=== PATIENT | male | born 1970 | race Caucasian/White ===

== ENCOUNTER 2024-05-08 20:40 | Emergency (ER) | payer OTHER, SELFPAY ==
[2024-05-08 20:57] VITALS: BP 163/121; PULSE 85; RESP 16; TEMP 36.5; O2SAT 96; BMI 36.6
--- NOTE | 2024-05-08 21:46 | ED_ITS ---
HPI - Eye Problem General: Chief complaint: Eye Problems Stated complaint: something in right eye Time Seen by Provider: 05/08/24 21:45 History of Present Illness: Patient was working with a wood saw this morning and his partner used the compressed air to clean off the machine causing dirt and debris to fly out from it. Patient reports getting something in his right eye that has been irritating him all day. Patient believes he was able to get it out but continues to have discomfort to the eye. Patient appears nontoxic. Patient appears in moderate pain. Review of Systems General: Reports: 10 or more systems reviewed and unremarkable except in HPI and below Physical Exam Const: COMMON NORMALS: alert HENMT: COMMON NORMALS: normocephalic HEAD & SCALP: normocephalic Eye: CORNEA: Yes fluorescein used (1 mm defect noted to the 9 o'clock position at the edge of the iris.) Neck/C-Spine: COMMON NORMALS: full ROM Resp: COMMON NORMALS: normal respiratory effort Cardio: COMMON NORMALS: regular rate RATE: regular rate Back/Pelvis: COMMON NORMALS: thoracic and lumbar spine normal to inspection Extremity: COMMON NORMALS: normal to inspection Neuro: SENSORIUM/ORIENTATION: Yes alert Skin: COMMON NORMALS: turgor normal GENERAL SKIN EXAM: turgor normal Course Vital Signs: Vital signs: Vital Signs Temperature 97.7 F 05/08/24 20:57 Pulse Rate 85 05/08/24 20:57 Respiratory Rate 16 05/08/24 20:57 Blood Pressure 163/121 05/08/24 20:57 Pulse Oximetry 96 05/08/24 20:57 Oxygen Delivery Me thod Room Air 05/08/24 20:57 MDM - Eye Problem Medical Decision Making 54-year-old male patient comes in today for complaints of discomfort to the right eye. On exam patient has no foreign body noted in the eye but does have a small corneal abrasion to the right eye at about the edge of the iris at the 9 o'clock position. It is approximately 1 mm. This is noted with fluorescein stain. Differential diagnosis includes foreign body, corneal laceration, corneal abrasion. No signs of serious injury is noted. Reviewed exam with patient with recommendations for treatment for corneal abrasion. Patient reported understanding. No radiology studies performed this visit Discharge Plan Discharge Patient Disposition: Home Clinical Impression: Corneal abrasion Qualifiers: Encounter type: initial encounter Laterality: right Qualified Code(s): S05.01XA - Injury of conjunctiva and corneal abrasion without foreign body, right eye, initial encounter Condition: Stable Discharge Orders: Discharge ED (Routine); Ordered 05/08/24 Ordered By: Fred Alonso Discharge Diet: Usual diet Discharge Activity: Increase activity as tolerated Patient Instructions: Corneal Abrasion (ED) Activity Restrictions/Additional Instructions: You may use the pain eyedrops, tetracaine, 1 drop every hour as needed for the next 2 days as needed for discomfort. Do not use it longer than 48 hours. Use the antibiotic eyedrops 4 times a day while awake for the next 7 days. Follow- up with primary care in 2 to 3 days for recheck. If pain persists after 3 days you need to be seen by an eye resident care aid. Return to ED for new concerns. Coding Level of Care Code ED Physically Impaired Teacher for Renny Oliveira
[2024-05-08] MEDS: tetracaine 0.5% Op Soln 4 mL Btl 1 DROP EYE-RIGHT (21:52)
== END 2024-05-08 22:08 | disposition home or self-care (01) ==
PROVIDERS: Emergency Provider Nurse Practitioner Family
DX: S05.01XA Injury of conjunctiva and corneal abrasion without foreign body, right eye, initial encounter (principal); W44.F9XA Other object of natural or organic material, entering into or through a natural orifice, initial encounter
CPT/HCPCS: 99283

== ENCOUNTER 2024-05-16 04:59 | Emergency (ER) | payer OTHER, SELFPAY ==
[2024-05-16 05:03] VITALS: BP 150/107; PULSE 80; RESP 18; TEMP 36.6; O2SAT 96; BMI 34.9
--- NOTE | 2024-05-16 05:19 | ED_ITS ---
HPI - General Adult 2 General: Chief complaint: General Medical Stated complaint: leg cramping, abd pain Time Seen by Provider: 05/16/24 05:14 History of Present Illness: 54-year-old man who presents emergency r oom with muscle cramping and weakness. He also has some mild generalized abdominal pain. He says he was working at a [employer] and thinks he got dehydrated. He has been drinking fluids and taking potassium pills but this has not helped. No altered mental status. No nausea or vomiting. No chest pain. Review of Systems 2 Narrative: Constitutional symptoms: Negative except as documented in HPI. Skin symptoms: Negative except as documented in HPI. Eye symptoms: Negative except as documented in HPI. ENMT symptoms: Negative except as documented in HPI. Respiratory symptoms: Negative except as documented in HPI. Cardiovascular symptoms: Negative except as documented in HPI. Gastrointestinal symptoms: Negative except as documented in HPI. Genitourinary symptoms: Negative except as documented in HPI. Musculoskeletal symptoms: Negative except as documented in HPI. Neurologic symptoms: Negative except as documented in HPI. Psychiatric symptoms: Negative except as documented in HPI. Endocrine symptoms: Negative except as documented in HPI. Physical Exam 2 Narrative: EXAM NARRATIVE: General: Alert, no acute distress. Skin: Warm, dry. Head: Normocephalic, atraumatic. Neck: Supple, trachea midline. Eye: Extraocular movements are intact. Ears, nose, mouth and throat: Tacky oral mucosa Cardiovascular: Regular, Normal peripheral perfusion. Respiratory: Lungs are clear to auscultation, respirations are non-labored, breath sounds are equal, Symmetrical chest wall expansion. Gastrointestinal: Soft, Nontender, Non distended, Normal bowel sounds. Musculoskeletal: Normal ROM, no deformity. Neurological: Alert and oriented, No focal neurological deficit observed. Psychiatric: Cooperative, appropriate mood & affect. Course 2 Vital Signs: Vital signs: Vital Signs Temperature 97.8 F 05/16/24 05:03 Pulse Rate 67 05/16/24 05:36 Respiratory Rate 18 05/16/24 05:03 Blood Pressure 129/87 05/16/24 05:36 Pulse Oximetry 99 05/16/24 05:36 Oxygen Delivery Me thod Room Air 05/16/24 05:36 [facility] - General Adult Medical Decision Making Lab results. BUN is fairly elevated at 26. Creatinine is normal at 1. This urine is a bit concentrated at 1.020 which would indicate dehydration. Assessment and plan: Dehydration -1.5 L normal saline given in the emergency room. - Discharged home - Discussed plan with patient. Answered any questions. - Evaluation and treatment of this problem were appropriate in the emergency setting. Lab Data 05/16/24 05:15 05/16/24 05:15 Laboratory Results WBC 6.52 10^3/uL (3.29-11.43) 05/16/24 05:15 RBC 4.24 10^6/uL (3.85-5.65) 05/16/24 05:15 Hgb 14.30 g/dL (11.27-16.99) 05/16/24 05:15 Hct 42.3 % (37-53) 05/16/24 05:15 MCV 99.8 fl (82-101) 05/16/24 05:15 MCH 33.7 pg (27-33) H 05/16/24 05:15 MCHC 33.8 g/dL (30-55) 05/16/24 05:15 RDW 13.3 % (12.1-15.1) 05/16/24 05:15 Plt Count 208 10^3/cmm (157-399) 05/16/24 05:15 MPV 10.3 fL (7.4-10.4) 05/16/24 05:15 Neut % (Auto) 53.9 % 05/16/24 05:15 Lymph % (Auto) 29.0 % 05/16/24 05:15 [place] % (Auto) 13.7 % 05/16/24 05:15 Eos % (Auto) 2.6 % 05/16/24 05:15 Baso % (Auto) 0.5 % 05/16/24 05:15 Neut # (Auto) 3.52 10^3/uL (1.8-7.7) 05/16/24 05:15 Lymph # (Auto) 1.9 10^3/uL (0.8-4.8) 05/16/24 05:15 [place] # (Auto) 0.9 10^3/uL (0.2-0.9) 05/16/24 05:15 Eos # (Auto) 0.2 10^3/uL (0.0-0.8) 05/16/24 05:15 Baso # (Auto) 0.0 10^3/uL (0.0-0.1) 05/16/24 05:15 Nucleated RBC % (auto) 0 % 05/16/24 05:15 Nucleated RBCs # 0.0 /100WBC 05/16/24 05:15 Sodium 137 mmol/L (136-145) 05/16/24 05:15 Potassium 3.9 mmol/L (3.5-5.1) 05/16/24 05:15 Chloride 100 mmol/L (98-107) 05/16/24 05:15 Carbon Dioxide 23 mmol/L (22-29) 05/16/24 05:15 Anion Gap 17.9 (5-19) 05/16/24 05:15 BUN 26 mg/dL (6-20) H 05/16/24 05:15 Creatinine 1.0 mg/dL (0.7-1.2) 05/16/24 05:15 GFR Calculation 77.9 mL/min (90-130) L 05/16/24 05:15 Glucose 148 mg/dL (65-115) H 05/16/24 05:15 Calculated Osmolality 292 mOsm/kg (285-295) 05/16/24 05:15 Calcium 9.2 mg/dL (8.5-10.5) 05/16/24 05:15 Magnesium 2.1 mg/dL (1.7-2.3) 05/16/24 05:15 Total Bilirubin 1.1 mg/dL (0.15-1.2) 05/16/24 05:15 AST 22 U/L (0-40) 05/16/24 05:15 ALT 26 U/L (0-41) 05/16/24 05:15 Alkaline Phosphatase 68 U/L (40-130) 05/16/24 05:15 Total Protein 7.4 g/dL (6.6-8.7) 05/16/24 05:15 Albumin 4.3 g/dL (3.5-5.2) 05/16/24 05:15 Globulin 3.1 g/dL (1.3-4.6) 05/16/24 05:15 Urine Color Yellow (Yellow) 05/16/24 05:18 Urine Appearance Clear (CLEAR) 05/16/24 05:18 Urine pH 5 (5-7) 05/16/24 05:18 Ur Specific [place] 1.020 (1.005-1.030) 05/16/24 05:18 Urine Protein Neg (Negative) 05/16/24 05:18 Urine Glucose (UA) Norm (Normal) 05/16/24 05:18 Urine Ketones Negative (Negative) 05/16/24 05:18 Urine Blood Neg (Negative) 05/16/24 05:18 Urine Nitrate Negative (Negative) 05/16/24 05:18 Urine Bilirubin Neg (Negative) 05/16/24 05:18 Urine Urobilinogen Neg mg/dL (Negative) 05/16/24 05:18 Ur Leukocyte Esterase Negative (Negative) 05/16/24 05:18 Urine RBC 0-4 /hpf (0-2) H 05/16/24 05:18 Urine WBC 0-4 /hpf (0-5) H 05/16/24 05:18 Ur Squamous Epith Cells None /hpf (0-5) 05/16/24 05:18 Amorphous Sediment Not Reportable 05/16/24 05:18 Urine Bacteria None /hpf (NONE) 05/16/24 05:18 Urine Mucus 1+ /hpf 05/16/24 05:18 Urine Sperm 1+ /hpf 05/16/24 05:18 No radiology studies performed this visit Discharge Plan Discharge Patient Disposition: Home Clinical Impression: Acute dehydration Condition: Stable Discharge Orders: Discharge ED (Routine); Ordered 05/16/24 Ordered By: Fanny Caruso Discharge Diet: Usual diet Discharge Activity: Resume usual activity Patient Instructions: Dehydration (ED) Activity Restrictions/Additional Instructions: Thank you for choosing [facility] for your healthcare needs today. Please realize this is an emergency room and that we are providing you with a medical screening exam and this may not be complete and all inclusive of all the testing and or work up that you may need to determine your ailment or severity of your illness. You have been screened and evaluated and felt safe for discharge. Health conditions do change or evolve sometimes and as such it is important that you follow up with your Primary Doctor to be re checked, 3-5 days is a general good time frame for follow up. You are always welcome to return to the ED for re assessment if your symptoms are worsening or you have new concerns Coding Level of Care Code ED Java Groovy Developer for Renny Oliveira
[2024-05-16] MEDS: sodium chloride 0.9% 1,000 ML 999 ML IV (05:21)
[2024-05-16 05:24] LABS: Basophils % 0.5 %; Eosinophils # 0.2 10^3/uL (0.0-0.8); Eosinophils % 2.6 %; Hematocrit 42.3 % (37-53); Lymphocytes # 1.9 10^3/uL (0.8-4.8); Mean Corpuscular HGB Conc 33.8 g/dL (30-55); Mean Corpuscular Hemoglobin 33.7 pg (27-33); Mean Corpuscular Volume 99.8 fl (82-101); Mean Platelet Volume 10.3 fL (7.4-10.4); Monocytes # 0.9 10^3/uL (0.2-0.9); Monocytes % 13.7 %; Neutrophils # 3.52 10^3/uL (1.8-7.7); Neutrophils % 53.9 %; Nucleated Red Blood Cells % 0 %; Platelet Count 208 10^3/cmm (157-399); Red Blood Count 4.24 10^6/uL (3.85-5.65); Red Cell Distribution Width 13.3 % (12.1-15.1); White Blood Count 6.52 10^3/uL (3.29-11.43)
[2024-05-16 05:26] VITALS: BP 156/83; PULSE 70; O2SAT 98
[2024-05-16 05:33] LABS: Bilirubin Urine Neg (Negative); Blood Urine Neg (Negative); Glucose Urine UA Norm (Normal); Ketones Urine Negative (Negative); Leukocyte Esterase Urine Negative (Negative); Nitrate Urine Negative (Negative); Protein Urine Neg (Negative); Urine Appearance Clear (CLEAR); Urine Color Yellow (Yellow); Urobilinogen Urine Neg (Negative); pH Urine 5 (5-7)
[2024-05-16 05:34] LABS: Add Urine Culture? No; Mucus Urine 1+ /hpf; RBC Urine 0-4 /hpf (0-2); Sperm Urine 1+ /hpf; WBC Urine 0-4 /hpf (0-5)
[2024-05-16 05:36] VITALS: BP 129/87; PULSE 67; O2SAT 99
[2024-05-16 05:38] LABS: Alanine Aminotransferase 26 U/L (0-41); Albumin Level 4.3 g/dL (3.5-5.2); Alkaline Phosphatase 68 U/L (40-130); Anion Gap 17.9 (5-19); Aspartate Amino Transferase 22 U/L (0-40); Blood Urea Nitrogen 26 mg/dL (6-20); Calcium 9.2 mg/dL (8.5-10.5); Carbon Dioxide 23 mmol/L (22-29); Chloride 100 mmol/L (98-107); Creatinine Clr Calc Pharmacy 89.5852; Globulin 3.1 g/dL (1.3-4.6); Glomerular Filtration Rate 77.9 mL/min (90-130); Glucose 148 mg/dL (65-115); Magnesium 2.1 mg/dL (1.7-2.3); Osmolality Calculated 292 mOsm/kg (285-295); Potassium 3.9 mmol/L (3.5-5.1); Sodium 137 mmol/L (136-145); Total Bilirubin 1.1 mg/dL (0.15-1.2); Total Protein 7.4 g/dL (6.6-8.7)
[2024-05-16] MEDS: sodium chloride 0.9% 500 ML 999 ML IV (05:48)
[2024-05-16 06:02] VITALS: BP 119/88; PULSE 65; RESP 18; O2SAT 99
== END 2024-05-16 06:39 | disposition home or self-care (01) ==
PROVIDERS: Emergency Provider Emergency Medicine
DX: E86.0 Dehydration (principal)
CPT/HCPCS: 80053; 81001; 83735; 85025; 96374; 96375; 99284; J7030; J7040

== ENCOUNTER 2024-08-31 10:07 | Emergency (ER) | payer OTHER, SELFPAY ==
[2024-08-31 10:30] VITALS: BP 167/84; PULSE 66; RESP 18; TEMP 36.8; O2SAT 99
[2024-08-31 10:49] LABS: Basophils % 0.4 %; Eosinophils # 0.1 10^3/uL (0.0-0.8); Eosinophils % 1.8 %; Hematocrit 40.8 % (37-53); Lymphocytes # 1.1 10^3/uL (0.8-4.8); Lymphocytes % 21.3 %; Mean Corpuscular HGB Conc 35.5 g/dL (30-55); Mean Corpuscular Volume 95.6 fl (82-101); Mean Platelet Volume 9.5 fL (7.4-10.4); Monocytes # 0.4 10^3/uL (0.2-0.9); Monocytes % 8.2 %; Neutrophils # 3.48 10^3/uL (1.8-7.7); Neutrophils % 68.1 %; Nucleated Red Blood Cells % 0 %; Platelet Count 213 10^3/cmm (157-399); Red Blood Count 4.27 10^6/uL (3.85-5.65); Red Cell Distribution Width 13.2 % (12.1-15.1); White Blood Count 5.11 10^3/uL (3.29-11.43)
[2024-08-31 11:12] LABS: Albumin Level 3.9 g/dL (3.5-5.2); Alkaline Phosphatase 105 U/L (40-130); Anion Gap 11.9 (5-19); Aspartate Amino Transferase 24 U/L (0-40); Blood Urea Nitrogen 10 mg/dL (6-20); Calcium 8.6 mg/dL (8.5-10.5); Carbon Dioxide 27 mmol/L (22-29); Chloride 101 mmol/L (98-107); Creatinine Clr Calc Pharmacy 109.9211; Globulin 2.7 g/dL (1.3-4.6); Glomerular Filtration Rate 100.7 mL/min (90-130); Glucose 145 mg/dL (65-115); Magnesium 1.8 mg/dL (1.7-2.3); Osmolality Calculated 284 mOsm/kg (285-295); Potassium 3.9 mmol/L (3.5-5.1); Sodium 136 mmol/L (136-145); Total Bilirubin 1.2 mg/dL (0.15-1.2); Total Protein 6.6 g/dL (6.6-8.7)
--- NOTE | 2024-08-31 11:18 | W.ED.WEAKNES ---
HPI - Weakness General: Chief complaint: Weakness Stated complaint: dehydrated, cant eat, cramping Time Seen by Provider: 08/31/24 10:48 History of Present Illness: 54-year-old male presents to the emergency room complaining of nausea abdominal cramping. Just generally feeling unwell. He states he has had this for the last several days he works at a job where it is quite hot he thinks he may have gotten a little bit dehydrated. Additionally he has previously been on Klonopin and had it stopped 8 days ago. Associated symptoms: Denies chest pain, chills, dysuria or fever(s) Review of Systems Const: Denies: fever(s) or chills Card: Denies: chest pain Resp: Denies: dyspnea GI: Denies: abdominal pain : Denies: dysuria, urinary frequency or urinary urgency Musc: Denies: neck pain or back pain Skin/Breast: Denies: rash PFSH ED PFSH: Medical History Psychiatric care Physical Exam Const: COMMON NORMALS: no acute distress GENERAL APPEARANCE: cooperative and comfortable ORIENTATION/CONSCIOUSNESS: Yes awake, Yes oriented to person, Yes oriented to place and Yes oriented to time HENMT: COMMON NORMALS: normocephalic, atraumatic and hearing grossly normal bilaterally HEAD & SCALP: normocephalic and atraumatic Resp: COMMON NORMALS: normal respiratory effort, No retractions, No use of accessory muscles and clear to auscultation bilaterally AUSCULTATION: clear to auscultation bilaterally Cardio: COMMON NORMALS: regular rate, regular rhythm and No murmurs present (Cardio) RATE: regular rate RHYTHM: regular rhythm GI: COMMON NORMALS: Soft to palpation and No hepatosplenomegaly present AUSCULTATION: Yes normoactive bowel sounds PALPATION: Yes Soft to palpation, No Tenderness to palpation present (GI), No Guarding due to palpation present (GI) and Yes No hepatosplenomegaly present Extremity: COMMON NORMALS: normal to inspection, capillary refill normal, no clubbing, cyanosis or edema, no calf tenderness and no pedal edema Neuro: SENSORIUM/ORIENTATION: Yes oriented to person, Yes oriented to place and Yes oriented to time Skin: COMMON NORMALS: no rashes or lesions noted GENERAL SKIN EXAM: no rashes or lesions noted Course Vital Signs: Vital signs: Vital Signs Temperature 98.2 F 08/31/24 10:30 Pulse Rate 70 08/31/24 14:14 Respiratory Rate 16 08/31/24 13:24 Blood Pressure 142/100 08/31/24 14:14 Pulse Oximetry 97 08/31/24 14:14 Oxygen Delivery Me thod Room Air 08/31/24 13:24 MDM - Weakness Medical Decision Making Improved after IV fluids. He generally has gastritis type symptoms. Labs and reviewed CBC and chemistry not show any significant abnormality has not had any urinary symptoms. Improved with fluids and antiemetics. Discharge patient home clear liquid diet advance as tolerated Zofran as needed Medical Records I reviewed the patient's medical records. Lab Data I reviewed the patient's lab results. 08/31/24 10:43 08/31/24 10:43 Laboratory Results WBC 5.11 10^3/uL (3.29-11.43) 08/31/24 10:43 RBC 4.27 10^6/uL (3.85-5.65) 08/31/24 10:43 Hgb 14.50 g/dL (11.27-16.99) 08/31/24 10:43 Hct 40.8 % (37-53) 08/31/24 10:43 MCV 95.6 fl (82-101) 08/31/24 10:43 MCH 34.0 pg (27-33) H 08/31/24 10:43 MCHC 35.5 g/dL (30-55) 08/31/24 10:43 RDW 13.2 % (12.1-15.1) 08/31/24 10:43 Plt Count 213 10^3/cmm (157-399) 08/31/24 10:43 MPV 9.5 fL (7.4-10.4) 08/31/24 10:43 Neut % (Auto) 68.1 % 08/31/24 10:43 Lymph % (Auto) 21.3 % 08/31/24 10:43 [place] % (Auto) 8.2 % 08/31/24 10:43 Eos % (Auto) 1.8 % 08/31/24 10:43 Baso % (Auto) 0.4 % 08/31/24 10:43 Neut # (Auto) 3.48 10^3/uL (1.8-7.7) 08/31/24 10:43 Lymph # (Auto) 1.1 10^3/uL (0.8-4.8) 08/31/24 10:43 [place] # (Auto) 0.4 10^3/uL (0.2-0.9) 08/31/24 10:43 Eos # (Auto) 0.1 10^3/uL (0.0-0.8) 08/31/24 10:43 Baso # (Auto) 0.0 10^3/uL (0.0-0.1) 08/31/24 10:43 Nucleated RBC % (auto) 0 % 08/31/24 10:43 Nucleated RBCs # 0.0 /100WBC 08/31/24 10:43 Sodium 136 mmol/L (136-145) 08/31/24 10:43 Potassium 3.9 mmol/L (3.5-5.1) 08/31/24 10:43 Chloride 101 mmol/L (98-107) 08/31/24 10:43 Carbon Dioxide 27 mmol/L (22-29) 08/31/24 10:43 Anion Gap 11.9 (5-19) 08/31/24 10:43 BUN 10 mg/dL (6-20) 08/31/24 10:43 Creatinine 0.8 mg/dL (0.7-1.2) 08/31/24 10:43 GFR Calculation 100.7 mL/min (90-130) 08/31/24 10:43 Glucose 145 mg/dL (65-115) H 08/31/24 10:43 Calculated Osmolality 284 mOsm/kg (285-295) L 08/31/24 10:43 Calcium 8.6 mg/dL (8.5-10.5) 08/31/24 10:43 Magnesium 1.8 mg/dL (1.7-2.3) 08/31/24 10:43 Total Bilirubin 1.2 mg/dL (0.15-1.2) 08/31/24 10:43 AST 24 U/L (0-40) 08/31/24 10:43 ALT 23 U/L (0-41) 08/31/24 10:43 Alkaline Phosphatase 105 U/L (40-130) 08/31/24 10:43 Total Protein 6.6 g/dL (6.6-8.7) 08/31/24 10:43 Albumin 3.9 g/dL (3.5-5.2) 08/31/24 10:43 Globulin 2.7 g/dL (1.3-4.6) 08/31/24 10:43 All radiology interpretation(s) finalized by discharge Discharge Plan Discharge Patient Disposition: Home Clinical Impression: Gastroenteritis Condition: Stable Prescriptions: New ondansetron HCl 4 mg tablet 4 mg PO Q6H PRN (Reason: nausea and vomiting) Qty: 20 0RF No Action nebivolol [Bystolic] 2.5 mg tablet 2.5 mg PO DAILY clonazepam 1 mg tablet 1 mg PO BID prazosin 5 mg capsule 5 mg PO .HS Qty: 30 1RF amitriptyline 25 mg tablet 25 mg PO .HS Qty: 30 1RF Discharge Orders: Discharge ED (Routine); Ordered 08/31/24 Ordered By: Tanner Rivera Discharge Diet: Clear Liquid Discharge Activity: Increase activity as tolerated Patient Instructions: Opioid Safety, Pain Management Activity Restrictions/Additional Instructions: Thank you for choosing [facility] for your healthcare needs today. It is very important that you follow up as instructed or that you return to the Emergency Department should you have concerns or if your condition changes or worsens in any way. You are seen in the emergency room for generally not feeling well as well as having some nausea and diarrhea. Laboratory test did not show significant abnormality. He reported feeling somewhat improved after receiving IV fluids. Suspect he may have some mild gastroenteritis. Recommend clear liquid diet for next 24 to 48 hours and advance as tolerated you can use ondansetron as needed. Stand Alone Forms: Work/School Release Coding Level of Care Code ED Real Estate Transaction Coordinator for [employer] Home Medications Medication Instructions Recorded Confirmed clonazepam 1 mg tablet 1 mg PO BID 08/23/24 nebivolol 2.5 mg tablet (Bystolic) 2.5 mg PO DAILY 08/23/24 Previous Rx's Medication Instructions Recorded amitriptyline 25 mg tablet 25 mg PO .HS #30 tabs 08/23/24 prazosin 5 mg capsule 5 mg PO .HS #30 caps 08/23/24 ondansetron HCl 4 mg tablet 4 mg PO Q6H PRN nausea and 08/31/24 vomiting #20 tabs Allergies Allergy/AdvReac Type Severity Reaction Status Date / Time No Known Allergies Allergy Verified 05/16/24 05:07
[2024-08-31] MEDS: lactated ringers 1,000 ML 999 ML IV (11:20)
[2024-08-31] MEDS: ondansetron 2 mg/ML SDV 2 mL 4 MG IVP (11:20)
[2024-08-31 11:24] LABS: Alanine Aminotransferase 23 U/L (0-41)
[2024-08-31 13:24] VITALS: BP 144/97; PULSE 52; RESP 16; O2SAT 95
[2024-08-31 14:14] VITALS: BP 142/100; PULSE 70; O2SAT 97
== END 2024-08-31 14:15 | disposition home or self-care (01) ==
PROVIDERS: Emergency Medicine; Emergency Provider Family Medicine
DX: K52.9 Noninfective gastroenteritis and colitis, unspecified (principal)
CPT/HCPCS: 36415; 80053; 83735; 85025; 96374; 99284; J2405; J7120

== ENCOUNTER → 2025-01-20 17:33 | Outpatient (BNVA) | payer OTHER, SELFPAY | DX: M25.512 Pain in left shoulder (principal) | CPT/HCPCS: 73030 ==

== ENCOUNTER → 2025-02-03 08:27 | Outpatient (BNVA) | payer OTHER, SELFPAY | PROVIDERS: Visit Provider Nurse Practitioner | DX: M19.012 Primary osteoarthritis, left shoulder (principal); R29.898 Other symptoms and signs involving the musculoskeletal system; S49.92XA Unspecified injury of left shoulder and upper arm, initial encounter; X58.XXXA Exposure to other specified factors, initial encounter | CPT/HCPCS: 73030 ==

== ENCOUNTER 2025-02-17 10:44 | Outpatient (CLI) | payer OTHER, MEDICAID, SELFPAY ==
--- NOTE | 2025-02-17 11:00 | MR_ITS ---
WS: [id number] MRI LEFT SHOULDER HISTORY: left shoulder injury COMPARISON: Radiograph 02/03/2025 TECHNIQUE: Multiplanar sequences of the shoulder joint are submitted. Mild AC joint arthropathy. Hypertrophic osteophytes from the clavicle and acromion. Very small amount of fluid in the subacromial bursa. Mild subacromial impingement. No os acromion. Biceps tendon in normal position at the bicipital groove. Very slightly high riding humeral head. Mild asymmetry of the glenohumeral joint. Tendinopathy in the distal supraspinatus tendon. There is an additional moderate insertion site tear measuring 5.3 mm involving the articular surface of the supraspinatus. No full-thickness tear or retraction. No significant atrophy of the rotator cuff muscles. Subscapularis recess fluid. Superior anterior labral tear. There is an additional posterior labral tear with involvement of the glenoid. No displacement. Inferior labrum appears intact. Coracohumeral ligament edema. MR/MR shoulder LT con* [id number] IMPRESSION: 1. Large superior to anterior labral tear. 2. Additional posterior labral tear with avulsion of the glenoid. 3. Moderate insertion site tear of the supraspinatus tendon without retraction . 4. Mild AC joint arthritis. 5. Mild subacromial impingement. 6. No rotator cuff muscle atrophy. 7. Coracohumeral ligament edema.
== END 2025-02-17 10:45 | disposition home or self-care (01) ==
PROVIDERS: Visit Provider Nurse Practitioner
DX: M19.012 Primary osteoarthritis, left shoulder (principal); S43.492A Other sprain of left shoulder joint, initial encounter; S46.012A Strain of muscle(s) and tendon(s) of the rotator cuff of left shoulder, initial encounter; X58.XXXA Exposure to other specified factors, initial encounter
CPT/HCPCS: 73221

== ENCOUNTER 2025-03-03 11:18 | Outpatient (CLI) | payer OTHER, MEDICAID, SELFPAY ==
[2025-03-03 12:57] LABS: Add Urine Microscopic? NO
[2025-03-03 13:06] LABS: Basophils % 0.4 %; Eosinophils # 0.1 10^3/uL (0.0-0.8); Eosinophils % 2.4 %; Hematocrit 37.2 % (37-53); Lymphocytes % 36.9 %; Mean Corpuscular HGB Conc 33.6 g/dL (30-55); Mean Corpuscular Hemoglobin 32.9 pg (27-33); Mean Corpuscular Volume 97.9 fl (82-101); Mean Platelet Volume 10.6 fL (7.4-10.4); Monocytes # 0.6 10^3/uL (0.2-0.9); Monocytes % 10.3 %; Neutrophils # 2.71 10^3/uL (1.8-7.7); Neutrophils % 49.6 %; Nucleated Red Blood Cells % 0 %; Platelet Count 172 10^3/cmm (157-399); Red Cell Distribution Width 12.6 % (12.1-15.1); White Blood Count 5.45 10^3/uL (3.29-11.43)
[2025-03-03 13:22] LABS: Urine Appearance Clear (CLEAR); Urine Color Yellow (Yellow); pH Urine 6.5 (5-7)
[2025-03-03 13:23] LABS: Bilirubin Urine Neg (Negative); Blood Urine Neg (Negative); Glucose Urine UA Norm (Normal); Ketones Urine Negative (Negative); Leukocyte Esterase Urine Negative (Negative); Nitrate Urine Negative (Negative); Protein Urine Neg (Negative); Specific Gravity, Urine 1.015 (1.005-1.030); Urobilinogen Urine Neg (Negative)
[2025-03-03 13:24] LABS: Charge for UA Resulting for Rev
[2025-03-03 13:25] LABS: Alanine Aminotransferase 26 U/L (0-41); Albumin Level 4.1 g/dL (3.5-5.2); Alkaline Phosphatase 50 U/L (40-130); Anion Gap 11.1 (5-19); Aspartate Amino Transferase 18 U/L (0-40); Blood Urea Nitrogen 15 mg/dL (6-20); Calcium 8.9 mg/dL (8.5-10.5); Carbon Dioxide 31 mmol/L (22-29); Chloride 104 mmol/L (98-107); Globulin 2.4 g/dL (1.3-4.6); Glomerular Filtration Rate 100.4 mL/min (90-130); Glucose 102 mg/dL (65-115); Osmolality Calculated 295 mOsm/kg (285-295); Potassium 4.1 mmol/L (3.5-5.1); Sodium 142 mmol/L (136-145); Total Bilirubin 0.6 mg/dL (0.15-1.2); Total Protein 6.5 g/dL (6.6-8.7)
== END 2025-03-03 11:19 | disposition home or self-care (01) ==
LOC: LAB 11:19
PROVIDERS: Visit Provider Orthopaedic Surgery
DX: Z01.818 Encounter for other preprocedural examination (principal)
CPT/HCPCS: 36415; 80053; 81003; 85025

== ENCOUNTER 2025-03-12 09:22 | Day surgery (SDC) | payer OTHER, MEDICAID, SELFPAY ==
[2025-03-12] VITALS (13 sets, daily range): BP systolic 118–139; BP diastolic 75–107; PULSE 60–91; RESP 10–25; TEMP 36.1–36.6; O2SAT 90–98; BMI 36.8
[2025-03-12] MEDS: sodium chloride 0.9% 1,000 ML 30 ML IV (09:48)
--- NOTE | 2025-03-12 10:26 | P.ANESASSM_ITS ---
Pre-Anesthetic Assessment Height/Weight: Height 1.65 m Weight 100.244 kg Temp Pulse Resp BP Pulse Ox O2 Del Method 97.6 F 91 18 134/89 98 Room Air 03/12/25 09:42 03/12/25 09:42 03/12/25 09:42 03/12/25 09:42 03/12/25 09:42 03/12/25 09:42 Operation Date: 03/12/25 11:00 Proposed Procedures p LEFT SHOULDER DIAGNOSTIC AND SURGICAL ARTHROSCOPY(Left) - Delfino Malhotra MD s Rotator Cuff Repair(Left) - Delfino Malhotra MD s Labral Debridement(Left) - Delfino Malhotra MD Familial anesthetic complications: none Was Beta Ab taken within 24 hours: N/A Was Clonidine taken within 24 hours: N/A Last intake: Intake Last Liquid Date 03/11/25 Last Liquid Time 23:00 Last Solid Date 03/11/25 Last Solid Time 23:00 Social Tobacco and No alcohol Exam alert, oriented x 3 and regular rate & rhythm Airway Submandibular: within normal limits Cervical ROM: within normal limits Mallampati: Class II Dentition: chipped Pulmonary Chronic Obstructive Pulmonary Disease Neuropsych Anxiety Anesthetic Plan ASA status: 2 Anesthesia: General and Regional (specify below) (left interscalene) Medications/Allergies Home Medications ?Medication ?Instructions ?Recorded ?Confirmed ?Last Taken ?Type arm sling #1 ea 01/20/25 03/05/25 Unkn own Rx hydrocodone 5 mg-acetaminophen 325 1 tab PO BID PRN pa in 5 days #10 03/10/25 03/12/25 03/12/25 Rx mg tablet tabs Allergies Allergy/AdvReac Type Severity Reaction Status Date / Time No Known Allergies Allergy Verified 03/12/25 09:41 Current Medications Generic Name Dose Route Start Last Admin Trade Name Freq PRN Reason Stop Dose Admin Sodium Chloride 1,000 mls @ 30 mls/hr 03/12/25 09:45 03/12/25 09:48 Sodium Chloride 0.9% IV 03/13/25 09:44 30 mls/hr .Q24H KATHARINE Administration PFSH Anesthesia Medical History Labral tear of shoulder Rotator cuff tear Primary osteoarthritis, left shoulder Psychiatric care Social History Smoking and tobacco/nicotine status: never used tobacco/nicotine Data Anesthesia Cardiac Studies: No Data to Display
[2025-03-12] MEDS: HYDROmorphone 0.5 MG/0.5 ML INJ IVP (10:39)
--- NOTE | 2025-03-12 11:24 | P.HPUD_ITS ---
Surgery/Procedure H&P Update DATE OF PROCEDURE: March 12, 2025 DATE H&P PERFORMED: 03/05/25 H&P UPDATE INFORMATION: I have reviewed H&P completed within last 30 days, I have examined patient prior to procedure, No changes to prior documentation, H&P to be scanned into chart, H&P is in [facility] EMR on date indicated and Risks and benefits of the procedure reviewed PREOP DIAGNOSIS: Internal derangement left shoulder, torn labrum, torn rotator cuff PLANNED PROCEDURE: Operation Date: 03/12/25 11:00 Proposed Procedures p LEFT SHOULDER DIAGNOSTIC AND SURGICAL ARTHROSCOPY(Left) - Delfino Malhotra MD s Rotator Cuff Repair(Left) - Delfino Malhotra MD s Labral Debridement(Left) - Delfino Malhotra MD
--- NOTE | 2025-03-12 12:00 | ANES.PROC ---
Anesthesia Procedures Procedure/Date: 03/12/25 Nerve Block ^: Nerve Block 1: Main Anesthesia: general anesthesia Time Out Performed: Yes Consent: requested by attending/covering physician and patient agrees to proceed Nerve block location: interscalene (left) Anesthesia monitors applied: pulse oximetry, EKG, BP cuff and oxygen Nerve block position: semi sitting Anesthetic Used: ropivicaine 0.5% Amount of anesthesia used (mL): 30 Ultrasound used to: recognize landmarks and visualize and ID brachial plexus Nerve Stimulator Used?: No Interscalene/Femoral BLK: 2 stimuplex 22 g needle used for position and inplane approach Injection: neg aspiration of heme Patient Tolerated Procedure: well Complications: none
[2025-03-12] MEDS: ceFAZolin 2,000 mg SDV 2000 MG IVP (12:11)
--- NOTE | 2025-03-12 14:08 | PM.OP ---
Operative Report Date of procedure: March 12, 2025 Surgeon: Delfino Malhotra MD Procedure: Preoperative diagnosis: Internal derangement left shoulder Postop diagnosis: Degenerative tearing of the anterior and posterior labrum, torn rotator cuff of the supraspinatus tendon, acromial impingement Procedure: Diagnostic left shoulder arthroscopy with debridement of anterior and posterior labrum, debridement of rotator cuff tear. Mini open rotator cuff repair and acromioplasty Surgeon: Delfino Malhotra MD Brush Trimming Machine Setter: LOPEZ Gruber was necessary for positioning the patient, preparation of the patient, assistance during the procedure, send dressings. Anesthesia: General With preoperative scalene block EBL: 10 cc Complications: None Indications Alberto is a 55-year-old white male was referred in the orthopedic clinics for evaluation of left shoulder pain and problems. Thought he injured his shoulder throwing trash into a bin where the trash weighed all the way up to his 100 pounds etc. He noticed that he was having shoulder pain after this activity. Eventually an MRI was obtained and demonstrating anterior and posterior labral tearing as well as possible rotator cuff tear of the supraspinatus tendon. After orthopedic evaluation review of the MRI is felt the patient would most benefit from diagnostic left arthroscopy with all indicated procedures. All risk benefits treatment alternatives were discussed with him as well as all aspects of the surgery. All of his questions were answered and he was willing to proceed with surgical intervention. Procedure: After obtaining consent patient had skin block administered in preop holding area. Patient was then taken to the operating room placed on the operative table supine position general anesthetic administered. Once good anesthesia was achieved patient was placed up in the beachchair position and passed into the bed as well as padded out appropriately. Left upper extremity and shoulder were prepped and draped usual fashion. After surgical timeout standard posterior portals name and #11 blade and camera cannulas placed within the glenohumeral joint line. Working portal was also placed just inferior to the clavicle anteriorly. Probing the area found that there is fraying and tearing of the majority of the anterior labrum though no true through tear away from the glenoid. This is debrided on a stable cartilaginous base. There is some fraying of the superior labrum this too was debrided mechanical shaver. And there was degenerative tearing of the posterior horn of the labrum. This too was debrided mechanical shaver down to stable cartilaginous space. Evaluating the rotator cuff there appeared to be tearing of the inner surface of the rotator cuff from the biceps hiatus laterally. This debrided down with mechanical shaver. At this point arthroscopy was discontinued. A small mini open incision was made over the anterior aspect of the acromion. Sharp dissect taken on down to subcutaneous tissue electrocautery using stasis. Electrocautery was then used to peel the deltoid off the anterior aspect the acromion. It was quite notable by palpation that there is impingement of the acromion on the rotator cuff. This was then removed with a small microsagittal saw and debrided with a rongeur. Once adequate debridement been achieved and decompression was noted that there was a tear in the central portion of the insertion of the supraspinatus into the humerus. This is freshened with a #15 blade. A single 2.9 juggernaut anchors placed within the bone in this area. This is double sutured and therefore 2 horizontal mattress sutures were used repair of the the tear of the rotator cuff. Once this is done show was brought sterile irrigation. Deltoid reapproximated 0 Vicryl figure 8 sutures. Subcutaneous was reapproximated Vicryl interrupted sutures. Skin was closed with a running subcuticular stitch. Wounds are clean and dry dressed this Adaptic dressing sterile gauze dressing ABD and adhesive tape. Patient placed abduction pillow sling. He was awakened transferred recovery room stable condition
--- NOTE | 2025-03-12 16:36 | ANE.PACU2 ---
Inpatient post-anesthesia follow up: Airway intact: Yes Vital signs: Temperature 97.8 F Pulse Rate 86 Respiratory Rate 18 Blood Pressure 138/96 Pulse Oximetry 94 Oxygen Delivery Me thod Room Air Oxygen Flow Rate 3 Fraction of Inspir ed Oxygen Hydration adequate: Yes Nausea and vomiting: No Pain level: 1 Mental status: Baseline
== END 2025-03-12 15:15 | disposition home or self-care (01) ==
PROVIDERS: Visit Provider Orthopaedic Surgery
PROC: (CPT 29805; principal; 2025-03-12 10:50)
PROC: 0LQ24ZZ Repair Left Shoulder Tendon, Percutaneous Endoscopic Approach (ICD-10-PCS; CPT 29827; 2025-03-12 10:50)
PROC: (CPT 23410; 2025-03-12 10:50)
DX: S46.012A Strain of muscle(s) and tendon(s) of the rotator cuff of left shoulder, initial encounter (principal); S43.432A Superior glenoid labrum lesion of left shoulder, initial encounter; M19.012 Primary osteoarthritis, left shoulder; M75.42 Impingement syndrome of left shoulder; J44.9 Chronic obstructive pulmonary disease, unspecified; X50.0XXA Overexertion from strenuous movement or load, initial encounter
CPT/HCPCS: 23410; 29822; C1713; J0690; J1171; J2704; J2795; J3010; J7030; J9999

== ENCOUNTER 2025-04-20 11:13 | Emergency (ER) | payer OTHER, MEDICAID, SELFPAY ==
[2025-04-20 11:17] VITALS: BP 165/109; PULSE 84; TEMP 36.6; O2SAT 97; BMI 35.7
--- NOTE | 2025-04-20 11:32 | XRR_ITS ---
PROCEDURE INFORMATION: Exam: XR Left Shoulder Exam date and time: 04/20/2025 11:34 AM Age: 55 years old Clinical indication: Injury or trauma; Fall; Sprain or strain; Shoulder; Left; Prior surgery; Surgery date: 1-6 months; Surgery type: PT just said that they fixed some tendons TECHNIQUE: Imaging protocol: Radiologic exam of the left shoulder. Views: 2 or more views. COMPARISON: MR shoulder LT wo con* [id number] 02/17/2025 11:18 AM FINDINGS: Bones/joints: No displaced fracture nor dislocation seen. No abnormal calcifications seen. Soft tissues: No metallic foreign body seen. XR/XR shoulder LT min 2V* [id number] IMPRESSION: No displaced fracture seen.
--- NOTE | 2025-04-20 11:33 | W.ED.EXTPRO ---
HPI - Extremity Problem General: Chief complaint: Extremity Injury, Upper Stated complaint: pain in lft shoulder, purulent drainage Time Seen by Provider: 04/20/25 11:17 Source: patient Mode of arrival: ambulatory Limitations: no limitations History of Present Illness: 55-year-old male states he did have rotator cuff surgery a month ago he states he did fell 3 weeks ago and actually has had some pain since then he states he had a small abscess as well just medial to his incision it has been draining. He denies any fevers rates pain a 2 out of 10 currently Associated symptoms: Deny chest pain, fever(s) or rash Related Data Home Medications ?Medication ?Instructions ?Recorded ?Confirmed ibuprofen 200 mg tablet 400 mg PO Q6H PRN Pain 04/20/25 04/20/25 Allergies Allergy/AdvReac Type Severity Reaction Status Date / Time No Known Allergies Allergy Verified 04/20/25 11:22 Review of Systems Const: Denies: fever(s), chills, body aches or change in appetite ENMT: Denies: throat pain or dental pain Card: Denies: chest pain Resp: Denies: dyspnea GI: Denies: abdominal pain, nausea, vomiting or diarrhea Musc: Reports: extremity pain; Denies: neck pain or back pain Skin/Breast: Denies: rash Neuro: Denies: headache(s) PFSH ED PFSH: Medical History Labral tear of shoulder Rotator cuff tear Primary osteoarthritis, left shoulder Psychiatric care Social History Smoking and tobacco/nicotine status: never used tobacco/nicotine Physical Exam Const: COMMON NORMALS: no acute distress, patient oriented x3 and healthy appearing HENMT: COMMON NORMALS: normocephalic and atraumatic HEAD & SCALP: normocephalic and atraumatic Eye: COMMON NORMALS: conjunctivae normal CONJUNCTIVA: Yes conjunctivae normal Neck/C-Spine: COMMON NORMALS: full ROM and supple Chest: COMMONS NORMALS: normal inspection of the chest Resp: COMMON NORMALS: normal respiratory effort Cardio: COMMON NORMALS: regular rate RATE: regular rate Extremity: COMMON NORMALS: full ROM NARRATIVE EXTREMITY EXAM: Incisions clean dry and intact no erythema no obvious deformity left shoulder has a small abscess just medial to the incision Neuro: COMMON NORMALS: patient oriented x3, moves all extremities and no focal motor deficits Psych: COMMON NORMALS: mental status grossly normal, Normal thought process present and cooperative THOUGHT PROCESS: Normal thought process present Skin: COMMON NORMALS: no rashes or lesions noted and no wounds GENERAL SKIN EXAM: no rashes or lesions noted Procedures Abscess I/D Site: upper extremity Side (if applicable): left Local Anesthetic: lidocaine 1% Amount of anesthesia used (mL): 3 Packing used?: none Course Vital Signs: Vital signs: Vital Signs Temperature 97.9 F 04/20/25 11:17 Pulse Rate 84 04/20/25 11:17 Blood Pressure 165/109 04/20/25 11:17 Pulse Oximetry 97 04/20/25 11:17 Oxygen Delivery Me thod Room Air 04/20/25 11:17 MDM - Extremity (Nontraumatic) Medical Decision Making Patient presents for some left shoulder pain x-ray is normal he had a very small abscess was incised minimal drainage at this time no signs of joint infection he stable for discharge follow-up with his orthopedist return if worsening. Medical Records I reviewed the patient's medical records. XR interpretation done by ED provider, pending radiology final review ED provider radiology interpretation(s): xr L shoulder: no acute abnormality Discharge Plan Discharge Patient Disposition: Home Clinical Impression: Pain in left shoulder, Abscess Condition: Stable Prescriptions: No Action ibuprofen 200 mg Tablet 400 mg PO Q6H PRN (Reason: Pain) Discharge Orders: Discharge ED (Routine); Ordered 04/20/25 Ordered By: Eloy Bettencourt Discharge Diet: Advance as tolerated Discharge Activity: Resume usual activity Patient Instructions: Abscess (ED), Shoulder Pain (ED) Print Language: Guatemalan Coding Level of Care Code ED Smoking Pipe Maker for Renny Oliveira
--- NOTE | 2025-04-20 11:46 | PC.PHAR ---
Pt recently filled [place] 5-325 1q6h prn 03/28/25 5ds #30 and [place] 7.5-325 1q6h prn 03/20/25 8ds #30. Pt is out of both medications and is taking Ibuprofen 200mg 2 po q6h otc.
[2025-04-20 12:11] VITALS: BP 138/101; PULSE 81; O2SAT 96
== END 2025-04-20 12:12 | disposition home or self-care (01) ==
PROVIDERS: Emergency Provider Emergency Medicine
DX: T81.41XA Infection following a procedure, superficial incisional surgical site, initial encounter (principal); L02.414 Cutaneous abscess of left upper limb; Y83.8 Other surgical procedures as the cause of abnormal reaction of the patient, or of later complication, without mention of misadventure at the time of the procedure
CPT/HCPCS: 10060; 73030; 99283

== ENCOUNTER 2025-04-23 10:55 | Outpatient (RCR) | payer OTHER, MEDICAID, SELFPAY | END 2025-04-26 23:55 | disposition home or self-care (01) | LOC: SPT 10:55 | PROVIDERS: Visit Provider Orthopaedic Surgery | DX: Z98.890 Other specified postprocedural states (principal) | CPT/HCPCS: 97161 ==

== ENCOUNTER 2025-04-27 05:00 | Outpatient (RCR) | payer OTHER, MEDICAID, SELFPAY | END 2025-05-26 23:59 | disposition home or self-care (01) | LOC: SPT 05:00 | PROVIDERS: Visit Provider Orthopaedic Surgery | DX: Z47.89 Encounter for other orthopedic aftercare (principal) | CPT/HCPCS: 97110; 97140; 97530 ==

== ENCOUNTER 2025-05-27 05:00 | Outpatient (RCR) | payer OTHER, MEDICAID, SELFPAY | END 2025-06-26 23:59 | disposition home or self-care (01) | LOC: SPT 05:00 | PROVIDERS: Visit Provider Orthopaedic Surgery | DX: Z98.890 Other specified postprocedural states (principal) | CPT/HCPCS: 97110; 97140; 97164 ==

== ENCOUNTER 2025-06-27 05:00 | Outpatient (RCR) | payer OTHER, MEDICAID, SELFPAY | END 2025-07-27 23:59 | disposition home or self-care (01) | LOC: SPT 05:00 | PROVIDERS: Visit Provider Orthopaedic Surgery | DX: Z98.890 Other specified postprocedural states (principal) | CPT/HCPCS: 97110; 97140; 97164 ==

== ENCOUNTER 2025-07-28 05:00 | Outpatient (RCR) | payer OTHER, MEDICAID, SELFPAY | END 2025-08-26 23:59 | disposition home or self-care (01) | LOC: SPT 05:00 | PROVIDERS: Visit Provider Orthopaedic Surgery | DX: Z47.89 Encounter for other orthopedic aftercare (principal) | CPT/HCPCS: 97110; 97164 ==

== ENCOUNTER 2025-08-27 05:00 | Outpatient (RCR) | payer OTHER, MEDICAID, SELFPAY | END 2025-09-26 23:59 | disposition home or self-care (01) | LOC: SPT 05:00 | PROVIDERS: Visit Provider Orthopaedic Surgery | DX: Z98.890 Other specified postprocedural states (principal) | CPT/HCPCS: 97110 ==

== ENCOUNTER → 2025-09-08 13:37 | Outpatient (BNVA) | payer OTHER, MEDICAID, SELFPAY | PROVIDERS: Visit Provider Registered Nurse Neonatal Intensive Care | DX: M79.672 Pain in left foot (principal) | CPT/HCPCS: 73630 ==

== ENCOUNTER 2025-10-06 20:01 | Emergency (ER) | payer MEDICAID, SELFPAY ==
--- NOTE | 2025-10-06 20:04 | XRR_ITS ---
PROCEDURE INFORMATION: Exam: XR Chest Exam date and time: 10/06/2025 8:17 PM Age: 55 years old Clinical indication: Cough TECHNIQUE: Imaging protocol: Radiologic exam of the chest. Views: 1 view. COMPARISON: CR XR shoulder LT min 2V* [id number] 04/20/2025 11:34 AM FINDINGS: Lungs: Unremarkable. No consolidation. Pleural spaces: Unremarkable. No pleural effusion. No pneumothorax. Heart/Mediastinum: Unremarkable. No cardiomegaly. Vasculature: Aortic atherosclerosis. Bones/joints: Unremarkable. XR/XR chest 1V portable [id number] IMPRESSION: No definite acute infiltrate or effusion.
[2025-10-06 20:08] VITALS: BP 141/82; PULSE 75; RESP 16; TEMP 36.4; O2SAT 96; BMI 33.3
--- OUTSIDE RECORDS SUMMARY | 2025-10-06 20:09 | XMS_ITS | Clinical Summary ---
Author Organization [facility] Address [address] [place] [address] Phone Care Team Providers Care Cleaner Wall Name Role Phone Unavailable Primary Care Provider Unavailabl e Allergies Active Allergy Reactions Criticality Noted Date Comments Prednisone Anxiety Low 07/26/2025 Medications rizatriptan (MAXALT ETL ANALYST) 10 mg Tablet, Rapid Dissolve Place 10 mg inside cheek every 2 hours as needed for Migraine. may repeat in 2 hours; max dose 30mg in 24 hours Active albuterol sulfate HFA 90 mcg/actuation aerosol inhaler Take 2 Puffs by inhalation every 6 hours as needed for Wheezing or Shortness of Breath. 8.5 Gram Active fluticasone propionate (FLONASE) 50 mcg/spray [place], Suspension nasal inhaler Administer 2 Sprays in each nostril daily. 16 Gram Active Encounters Date Type Department Care Team Description 09/24/2025 External Device Data [facility]STRACTION Provider, Abstract 09/24/2025 External Device Data [facility] Provider, Abstract 09/23/2025 External Device Data [facility] Provider, Abstract 09/23/2025 External Device Data [facility] Provider, Abstract 09/02/2025 External Device Data [facility]STRACTION Provider, Abstract 08/26/2025 External Device Data [facility]STRACTION Provider, Abstract 08/26/2025 External Device Data [facility]STRACTION Provider, Abstract 08/26/2025 External Device Data [facility]STRACTION Provider, Abstract 07/30/2025 External Device Data [facility]STRA[facility] Provider, Abstract 07/29/2025 External Device Data [facility]STRA[facility] Provider, Abstract 07/29/2025 External Device Data [facility]STRACTION Provider, Abstract 07/26/2025 8:12 PM CDT - 07/26/2025 9:18 PM CDT Emergency [facility] Emergency Medicine [address] [place] [address] Tutu Judge MD Cough, unspecified type (Primary Dx) Discharge Disposition: Home or Self Care 07/26/2025 Travel from Last 3 Months Social History Tobacco Use Types Packs/Day Years Used Date Smoking Tobacco: Former Cigarettes Smokeless Tobacco: Never Tobacco Cessation:Counseling Given: Not Answered Alcohol Use Standard Drinks/Week Comments Not Currently 0 (1 standard drink = 0.6 oz pur e alcohol) Feeling Safe Answer Date Recorded Are you in a relationship wi th someone who hurts you emotionally and/or physically? No 07/26/2025 Sex and Gender Information Value Date Recorded Sex Assigned at Not on file Legal Sex Male 6:54 PM CDT Gender Identity Not on file Sexual Orientation Not on file Last Filed Vital Signs Vital Sign Reading Time Taken Comments Blood Pressure 187/116 07/26/2025 9:16 PM CDT Patient anxious Pulse 58 07/26/2025 9:16 PM CDT Temperature 36.7 C (98 F) 07/26/2025 7:34 PM CDT Respiratory Rate 20 07/26/2025 9:16 PM CDT Oxygen Saturation 95% 07/26/2025 9:1 6 PM CDT Inhaled Oxygen Concentration - - Weight 95.9 kg (211 lb 6.4 oz) 07/26/2025 7:34 PM CDT Height 167.6 cm (5' 6 ) 07/26/2025 7:34 PM CDT Body Mass Index 34.12 07/26/2025 7:34 PM CDT Plan of Treatment Health Maintenance Due Date Last Done Comments Pre-Diabetes and Diabetes Screening 1970 DTAP/TDAP/TD VACCINES (1 - Tdap) 1989 HEPATITIS B VACCINES (1 of 3 - 19+ 3-dose series) 11/1988 COLORECTAL SCREENING 2015 Colorectal Cancer Screening 2015 FIT-DNA Q 3 years 2015 FIT/FOBT Q 1 year 2015 Flex Sig/CT Colonography Q 5 years 2015 ZOSTER VACCINE (1 of 2) 02/26/2020 INFLUENZA VACCINE (#1) 2025 Procedures Procedure Name Priority Date/Time Associated Diagnosis Comments XR CHEST PA OR AP 1 VW Stat 07/26/2025 8:20 PM CDT COVID-19 ANTIGEN Stat 07/26/2025 7:31 PM CDT INFLUENZA VIRUS A AND B, ANTIGEN DETECTION Stat 07/26/2025 7:31 PM CDT from Last 3 Months Results * XR CHEST PA OR AP 1 VW (07/26/2025 8:20 PM CDT) Anatomical Region Laterality Modality Chest Computed Radiogr aphy 07/26/2025 8:20 PM CDT Impressions 07/26/2025 8:57 PM CDT IMPRESSION: Pulmonary vascular congestion/edema. MACRO: None Narrative 07/26/2025 8:57 PM CDT EXAMINATION: XR CHEST PA OR AP 1 VW CLINICAL HISTORY: ASSOCIATED DIAGNOSIS: Congestion ORDERING PROVIDER: TUTU JUDGE TECHNPER NOTE: COMPARISON: None FINDINGS: Lines, tubes, and devices: None. Lungs and pleura: No focal pulmonary consolidation, effusion or pneumothorax. Mild bilateral interstitial lung thickening. Cardiomediastinal silhouette: Normal cardiomediastinal silhouette. Musculoskeletal: Unremarkable. Procedure Note Marycruz Ortega MD - 07/26/2025 EXAMINATION: XR CHEST PA OR AP 1 VW CLINICAL HISTORY: ASSOCIATED DIAGNOSIS: Congestion ORDERING PROVIDER: TUTU BARRIOS NOTE: COMPARISON: None FINDINGS: Lines, tubes, and devices: None. Lungs and pleura: No focal pulmonary consolidation, effusion or pneumothorax. Mild bilateral interstitial lung thickening. Cardiomediastinal silhouette: Normal cardiomediastinal silhouette. Musculoskeletal: Unremarkable. IMPRESSION: Pulmonary vascular congestion/edema. MACRO: None Tutu Judge MD DIAGNOSTIC IMAGING OR DERABLES Final Result * COVID-19 ANTIGEN (07/26/2025 7:31 PM CDT) COVID-19 ANTIGEN Presumptive Negative Presumptive Negative 07/26/2025 7:54 PM CDT [facility] Upper Respiratory ANTERIOR NARES SWAB / Unknown Collection / Unknown 07/26/2025 7:31 PM CDT 07/26/2025 7:39 PM CDT Narrative [facility] - 07/26/2025 7:54 PM CDT Mary SARS antigen test has been authorized by FDA under an emergency use authorization (EUA) and has been authorized only for the detection of proteins from SARS-CoV-2 and influenza, not for any other viruses or pathogens. Mary SARS Antigen RICHAR is intended for the simultaneous qualitative detection and differentiation of nucleocapsid protein antigen from SARS-CoV-2 directly from nasopharyngeal (NANNY BABYSITTER) and nasal (NS) swab specimens collected from individuals who are suspected of respiratory viral infection consistent with COVID-19 by their healthcare provider within the first five (5) days of symptom onset when tested at least twice over three days with at least 48 hours between tests, or from individuals without symptoms or other epidemiological reasons to suspect COVID-19 when tested at least three times over five days with at least 48 hours between tests. This test is only authorized for the duration of the declaration that circumstances exist justifying the authorization of emergency use of in vitro diagnostics for detection and/or diagnosis of the virus that causes COVID-19 under Section 564(b)(1) of the Act, 21 U.S.C. 360bbb-3(b)(1), unless the authorization is terminated or revoked sooner. Negative results should be treated as presumptive and confirmed with a molecular assay, if necessary for patient care. Serial testing should be performed in individuals with negative results at least twice over three days (with 48 hours between tests) for symptomatic individuals or from individuals without symptoms or other epidemiological reasons to suspect COVID-19 when tested at least three times over five days with at least 48 hours between tests. Tutu Judge MD MICROBIOLOGY - [facility] L ORDERABLES Final Result [facility] CLIA # [id number] [address] [place] [id number] * INFLUENZA VIRUS A AND B, ANTIGEN DETECTION (07/26/2025 7:31 PM CDT) INFLUENZA A AG NOT DETECTED Not Detected 07/26/2025 7:54 PM CDT [facility] INFLUENZA B AG NOT DETECTED Not Detected 07/26/2025 7:54 PM CDT [facility] Upper Respiratory ENTIRE NASOPHARYNX / Unknown Collection / Unknown 07/26/2025 7:31 PM CDT 07/26/2025 7:39 PM CDT Narrative [facility] - 07/26/2025 7:54 PM CDT Negative results do not rule out infection. If clinically indicated, consider PCR testing which is more sensitive than antigen testing. If PCR testing is desired, consult with your local laboratory as sample recollection may be required. us Tutu Judge MD MICROBIOLOGY - [facility] L ORDERABLES Final Result [facility] CLIA # [id number] [address] [place] [id number] from Last 3 Months Insurance [employer]BET[employer] EXCHANGE [employer]K
--- NOTE | 2025-10-06 20:22 | W.ED.SOB ---
HPI - SOB/Dyspnea General: Chief Complaint: Upper Respiratory Infection Stated Complaint: Rash on Face\Conjested\Coughing Time Seen by Provider: 10/06/25 20:19 Source: patient Mode of arrival: ambulatory Limitations: no limitations History of Present Illness: HPI Narrative: 55-year-old male states that he has been having cough congestion along with throat pain has been going on for 3 to 4 weeks. He states he had finished a dose of amoxicillin a couple weeks ago. States he is continue have some cough and wheezing he denies any fevers he denies any chest pain. No history of asthma and is not on any meds currently. Related Data Previous Rx's ?Medication ?Instructions ?Recorded miscellaneous medical supply 1 ea miscellaneous .COMPLEX 365 09/08/25 days #1 ea albuterol sulfate 90 mcg/actuation 2 inh inhalation Q6H PRN shortness 10/06/25 aerosol inhaler of breath or wheezing #8 grams Allergies Allergy/AdvReac Type Severity Reaction Status Date / Time ibuprofen Allergy ADR-Vomitin Verified 10/06/25 20:13 g ketorolac (From Toradol) Allergy shakes Verified 10/06/25 20:13 Review of Systems ENMT: Reports: throat pain Resp: Reports: dyspnea and non-productive cough PFS ED PFSH: Medical History Labral tear of shoulder Rotator cuff tear Primary osteoarthritis, left shoulder Social History Smoking and tobacco/nicotine status: never used tobacco/nicotine Physical Exam Const: COMMON NORMALS: no acute distress, patient oriented x3 and healthy appearing HENMT: COMMON NORMALS: normocephalic and atraumatic HEAD & SCALP: normocephalic and atraumatic THROAT: posterior oropharynx normal Eye: COMMON NORMALS: Equal, round and reactive pupils present and EOMs intact bilaterally PUPIL: Yes Equal, round and reactive pupils present Neck/C-Spine: COMMON NORMALS: full ROM and supple Chest: COMMONS NORMALS: normal inspection of the chest Resp: COMMON NORMALS: normal respiratory effort, No retractions and No use of accessory muscles AUSCULTATION: wheezes Cardio: COMMON NORMALS: regular rate, regular rhythm and No murmurs present (Cardio) RATE: regular rate RHYTHM: regular rhythm Extremity: COMMON NORMALS: normal to inspection and full ROM Neuro: COMMON NORMALS: patient oriented x3, moves all extremities and no focal motor deficits Psych: COMMON NORMALS: mental status grossly normal, Normal thought process present and cooperative THOUGHT PROCESS: Normal thought process present Skin: COMMON NORMALS: no rashes or lesions noted and no wounds GENERAL SKIN EXAM: no rashes or lesions noted Course Vital Signs: Vital signs: Vital Signs Temperature 97.5 F L 10/06/25 20:08 Pulse Rate 75 10/06/25 20:52 Respiratory Rate 18 10/06/25 20:52 Blood Pressure 141/82 10/06/25 20:08 Pulse Oximetry 96 10/06/25 20:52 Oxygen Delivery Me thod Room Air 10/06/25 20:52 MDM - SOB/Dyspnea Medical Decision Making Patient presents with cough congestion going on for roughly 3 weeks. Differential includes pneumonia, upper respiratory infection. I did review his chest x-ray myself that showed no acute abnormalities no signs of pneumonia or pneumothorax. COVID RSV flu swab are negative. His vitals here been normal with normal pulse ox. He did have some mild wheezing here I did recommend that he needs a follow-up with PCP and could need pulmonary function testing outpatient. Will prescribe him albuterol for home. He understands agrees to the plan he is to return if worsening. Medical Records I reviewed the patient's medical records. Lab Data I reviewed the patient's lab results. Labs/Radiology: Radiology Impressions Chest X-Ray 10/06/25 20:04 IMPRESSION: No definite acute infiltrate or effusion. Laboratory Results Influenza A (PCR) Negative (Negative) 10/06/25 20:37 Influenza Type B (PCR) Negative (Negative) 10/06/25 20:37 RSV (PCR) Negative (Negative) 10/06/25 20:37 SARS-CoV-2 (PCR) Negative (Negative) 10/06/25 20:37 All radiology interpretation(s) finalized by discharge Discharge Plan Discharge Patient Disposition: Home Clinical Impression: Upper respiratory infection Condition: Stable Prescriptions: New albuterol sulfate 90 mcg/actuation HFA aerosol inhaler 2 inh INHALATION Q6H PRN (Reason: shortness of breath or wheezing) Qty: 8 0RF No Action miscellaneous medical supply Misc 1 ea miscellaneous .COMPLEX 365 Days Qty: 1 0RF Rx Instructions: 1 CAM boot 1 ea as directed; Discharge Orders: Discharge ED (Routine); Ordered 10/06/25 Ordered By: Eloy Bettencourt Discharge Diet: Advance as tolerated Discharge Activity: Resume usual activity Patient Instructions: Upper Respiratory Infection (ED) Print Language: Persian Coding Level of Care Code ED Agricultural Education Teacher for Renny Oliveira
[2025-10-06 20:52] VITALS: PULSE 75; RESP 18; O2SAT 96
[2025-10-06 21:30] LABS: Respiratory Syncytial Virus Ce NEGATIVE (Negative); SARS-CoV-2 PCR NEGATIVE (Negative)
== END 2025-10-06 21:54 | disposition home or self-care (01) ==
PROVIDERS: Emergency Provider Emergency Medicine
DX: J06.9 Acute upper respiratory infection, unspecified (principal); Z11.52 Encounter for screening for COVID-19
CPT/HCPCS: 71045; 87637; 94640; 99283; J9999

== ENCOUNTER → 2025-10-14 09:58 | Outpatient (BNVA) | payer MEDICAID, SELFPAY | DX: I10 Essential (primary) hypertension (principal) | CPT/HCPCS: 80053; 80061; 84443; 85025 ==

== ENCOUNTER 2025-10-20 08:33 | Outpatient (CLI) | payer MEDICAID, SELFPAY ==
--- NOTE | 2025-10-20 08:00 | MR_ITS ---
WS: [id number] MRI RIGHT SHOULDER NONCONTRAST TECHNIQUE: Sagittal T2, coronal T1, T2 and proton density imaging. Axial gradient PDE imaging. CLINICAL INFORMATION: right shoulder pain COMPARISON: None. FINDINGS: Moderate degenerative arthritis AC joint with fluid and edema. Mild narrowing of the subacromial space. Slight impingement on the underlying supraspinatus. Tendinopathy supraspinatus and infraspinatus. Tiny insertional tear distal supraspinatus. No tendon retraction. Biceps tendon appears intact within the bicipital groove. Moderate degenerative narrowing of the glenohumeral articulation. Teres minor is intact. Normal subscapularis tendon. Tendinopathy intra-articular biceps tendon. MR/MR shoulder RT wo con* [id number] IMPRESSION: 1. Moderate degenerative arthritis AC joint with mild narrowing of the subacro mial space. 2. Tiny insertional tear distal supraspinatus. 3. Tendinopathy supraspinatus and infraspinatus. 4. Biceps tendon intact within the bicipital groove. 5. Tendinopathy intra-articular biceps tendon.
== END 2025-10-20 08:34 | disposition home or self-care (01) ==
LOC: RAD 08:36
PROVIDERS: Visit Provider Orthopaedic Surgery
DX: M25.511 Pain in right shoulder (principal); M19.011 Primary osteoarthritis, right shoulder; M75.41 Impingement syndrome of right shoulder; M75.21 Bicipital tendinitis, right shoulder; M65.811 Other synovitis and tenosynovitis, right shoulder
CPT/HCPCS: 73221

== ENCOUNTER → 2025-11-04 08:27 | Outpatient (BNVA) | payer MEDICAID, SELFPAY | PROVIDERS: Visit Provider Orthopaedic Surgery | DX: M54.12 Radiculopathy, cervical region (principal) | CPT/HCPCS: 72050 ==

== ENCOUNTER 2025-11-24 12:53 | Outpatient (CLI) | payer MEDICAID, SELFPAY ==
--- NOTE | 2025-11-24 13:00 | MR_ITS ---
WS: [id number] MRI CERVICAL SPINE NONCONTRAST HISTORY: Cervical spine 11/04/2025 COMPARISON: None available. Technique: Multiplanar, multisequence noncontrast imaging of the cervical spine. Straightening of the normal cervical lordosis. No fractures or marrow edema. Disc spaces are well preserved. Signal within the cervical cord is normal. Visualized posterior fossa is unremarkable. Craniocervical junction, C1 and C2 relationship, odontoid process and soft tissues are normal. C2-C3: Shallow central disc protrusion. Small RIGHT foraminal osteophyte. No stenosis. C3-C4: Slight anterolisthesis of C3. Small central disc protrusion. Moderate RIGHT foraminal stenosis may be due to facet disease. There is fluid in the RIGHT facet joint. Mild stenosis on the LEFT. C4-C5: No stenosis. Mild RIGHT facet arthritis. C5-C6: Mild osteophytic ridging and small facet osteophytes. Mild bilateral foraminal stenosis. Mild bilateral facet arthritis, RIGHT greater than LEFT. C6-C7: Moderate central to LEFT paracentral disc osteophyte effacing the LEFT lateral thecal sac and slightly displacing the cord posteriorly. Mild central and LEFT foraminal stenosis. Fluid in the RIGHT facet joint. C7-T1: Normal. Paraspinal soft tissue are normal. MR/MR cervical spin wo con* [id number] IMPRESSION: 1. 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 Effacement o f the LEFT lateral thecal sac and displacement of the cord. Mild central and LE FT foraminal stenosis. 2. Moderate RIGHT foraminal stenosis at C3-4. Cause of the stenosis is not nannette arent. There may be a small osteophyte/disc fragment or facet disease. There is associated fluid in the RIGHT facet joint. Consider CT evaluation of the cervi shazia spine to better evaluate the RIGHT foraminal stenosis at C3-4. 3. Mild bilateral foraminal stenosis at C5-6 with facet arthritis. 4. Mild LEFT foraminal stenosis at C3-4. 5. C3 anterolisthesis by 3 mm.
== END 2025-11-24 12:54 | disposition home or self-care (01) ==
LOC: RAD 12:54
PROVIDERS: Visit Provider Orthopaedic Surgery
DX: M50.123 Cervical disc disorder at C6-C7 level with radiculopathy (principal); M50.223 Other cervical disc displacement at C6-C7 level; M48.02 Spinal stenosis, cervical region; M25.78 Osteophyte, vertebrae; R93.89 Abnormal findings on diagnostic imaging of other specified body structures; M43.12 Spondylolisthesis, cervical region; M43.8X2 Other specified deforming dorsopathies, cervical region; M47.892 Other spondylosis, cervical region; M50.21 Other cervical disc displacement, high cervical region
CPT/HCPCS: 72141